=== PATIENT | male | born 1985 | race Caucasian/White ===

== ENCOUNTER 2016-07-21 11:24 | Emergency (ER) | payer OTHER ==
[2016-07-21] MEDS ORDERED: LIDOCAINE 1% 2 ML VIAL ONE (11:57)
[2016-07-21] MEDS ORDERED: BACITRACIN OINT TOP STA (14:02)
[2016-07-21] MEDS ORDERED: BACITRACIN OINT TOP ONE (14:06)
== END 2016-07-21 14:26 | disposition home or self-care (01) ==
DX: S61.212A Laceration without foreign body of right middle finger without damage to nail, initial encounter (principal); W20.8XXA Other cause of strike by thrown, projected or falling object, initial encounter; Y92.89 Other specified places as the place of occurrence of the external cause; Y99.0 Civilian activity done for income or pay
CPT/HCPCS: 12001; 73140; 99283; A9270

== ENCOUNTER 2016-09-06 15:36 | Outpatient (CLI) | payer OTHER ==
--- NOTE | 2016-09-06 22:06 | MRI Report ---
EXAM: RIGHT HIP MRI WITHOUT CONTRAST EXAM DATE: 09/06/2016 04:20 PM. CLINICAL HISTORY: Slipped, fell, legs split, right groin pain with abduction, right hip pain, fell on e month ago. COMPARISON: None. TECHNIQUE: Multiplanar, multisequence T1-weighted and fluid-sensitive, small vjojs-vo-saeg sequences of the hip and large tqhay-vv-qemy sequences of the pelvis without contrast. Other: None. FINDINGS: Bones and articular surfaces: There is moderate cartilage thinning and some fissuring at the superior aspect of the right hip joint. There is prominent focal subchondral marrow edema at the anterosuperi or aspect of the right hip acetabulum. Mild cartilage thinning partially visualized in the left hip j oint. Marrow signal within the femoral heads appears normal. Small amount of degenerative subcortical marrow edema associated with the anteroinferior margin of the bilateral sacroiliac joints, right gre ater than left. No additional marrow signal abnormality. No evidence of acute fracture. No evidence o f femoral head AVN. Musculotendinous structures: No evidence of significant muscle tear, tendinosis or bursitis. No muscl e edema, atrophy or fatty replacement. Miscellaneous: There may be a trace amount of free fluid in the right pelvis. Unremarkable urinary bl adder. No pathologically enlarged lymph nodes. IMPRESSION: 1. Prominent focal marrow edema at the anterosuperior right hip acetabulum. There is moderate cartila ge thinning within the hip joint and this could represent degenerative subchondral edema. Alternative ly, this could represent bone contusion superimposed upon mild osteoarthritis. 2. Minimal degenerative change at the right greater than left sacroiliac joint. [facility] SECTION Referring Provider Line: [phone] SITE ID: [id number]
== END 2016-09-06 15:37 | disposition home or self-care (01) ==
LOC: DI 15:36
PROVIDERS: ATTEND Family Medicine
DX: R10.31 Right lower quadrant pain (principal); M47.898 Other spondylosis, sacral and sacrococcygeal region

== ENCOUNTER 2017-05-01 13:03 | Outpatient (CLI) | payer OTHER ==
[~2017-05-01 13:03] MED LIST: GADOPENTETATE DIMEGLUMINE 5 ML VIAL IVP ONE; IOTHALAMATE MEGLUMINE 50 ML VIAL ONE
[2017-05-01] MEDS ORDERED: BUFFERED LIDOCAINE 10 ML SYRINGE IU ONE (14:10)
[2017-05-01] MEDS ORDERED: IOTHALAMATE MEGLUMINE 50 ML VIAL IVP ONE (14:10)
[2017-05-01] MEDS ORDERED: GADOPENTETATE DIMEGLUMINE 5 ML VIAL IVP ONE (14:10)
--- NOTE | 2017-05-01 15:02 | XRAY Report ---
DATE OF SERVICE: 05/01/2017 FLUOROSCOPICALLY GUIDED RIGHT HIP INJECTION FOR MR ARTHROGRAM: 05/01/2017 CLINICAL INDICATION: Persistent pain. FINDINGS: Following obtaining informed consent, the patient's right hip was prepped and draped in the usual sterile fashion. The skin and soft tissues were anesthetized with lidocaine. A spinal needle was inserted into the patient's right hip joint, and following confirmation of needle positioning, a combination of Iodinated contrast, dilute gadolinium, and lidocaine was injected intraarticularly. The patient tolerated the procedure well. No immediate complications. Spot image reveals no evidence of contrast extravasation. IMPRESSION: SUCCESSFUL RIGHT HIP INJECTION FOR MR ARTHROGRAM. FLUOROSCOPY TIME: 27 SECONDS; 1 SPOT IMAGE OBTAINED. TD: 05/01/2017 14:59
--- NOTE | 2017-05-01 16:04 | MRI Report ---
EXAM: RIGHT HIP MRI ARTHROGRAM WITH CONTRAST EXAM DATE: 05/01/2017 02:35 PM. CLINICAL HISTORY: Right hip muscle or tendon strain. Previous injury. COMPARISON: Right hip MRI from 09/06/2016. TECHNIQUE: Multiplanar, multisequence T1-weighted and fluid-sensitive, small ekjcx-kf-iaxs sequences of the hip and large vxprw-jh-twdh sequences of the pelvis after an arthrographic injection of dilute gadolinium, dictated under a separate exam. Other: None. FINDINGS: Bones: Small osseous ridge/bump at the anterior aspect of the right femoral neck. No acute fracture o r bone lesions. The previously seen marrow edema at the anterior superior aspect of the right acetabu lum has resolved. There is a tiny 2 mm subcortical cyst at the anterior superior aspect of the right acetabulum. Tiny subcortical cyst at the anterolateral aspect of the left femoral head-neck junction. Slightly diminished left femoral head-neck offset. Right Hip: No acetabular retroversion. Slightly diminished right femoral head-neck offset. No loose b odies. The articular cartilage is intact. The labrum is intact. The ligamentum teres is intact. Other Joints: The visualized lumbar spine, sacroiliac joints, symphysis pubis, and contralateral hip are unremarkable. Musculature: No edema or fatty atrophy. The gluteus medius and minimus tendons are normal. The visual ized hamstring tendons are normal. The ischiofemoral space is normal. Pelvic Cavity: The visualized viscera are unremarkable. No lymphadenopathy. No free fluid in the pelv is. Other: The visualized sciatic nerves are unremarkable. No bursitis. The subcutaneous tissues are unre markable. IMPRESSION: 1. Slightly diminished bilateral femoral head-neck offset which may be a cause for cam-type femoral a cetabular impingement. Small osseous ridge/bump at the anterior aspect of the right femoral neck. 2. No evidence of right acetabular labral tear. 3. No evidence of tendon or muscle injury. [facility] SECTION Referring Provider Line: [phone] SITE ID: [id number]
== END 2017-05-01 13:04 | disposition home or self-care (01) ==
LOC: DI 13:03
PROVIDERS: ATTEND Family Medicine
DX: S76.011D Strain of muscle, fascia and tendon of right hip, subsequent encounter (principal)
CPT/HCPCS: 27093; 73722; 77002; Q9961; 20610

== ENCOUNTER 2018-04-24 12:59 | Emergency (ER) | payer SELFPAY ==
[2018-04-24] MEDS ORDERED: DEXAMETHASONE 10 MG/ML VIAL PO STA (14:52)
--- NOTE | 2018-04-24 14:55 | ED Physician Documentation ---
PD HPI URI - Stated complaint Stated Complaint: BODY ACHE/FEVER - Chief complaint Chief Complaint: Fever - History obtained from History obtained from: Patient - History of Present Illness Timing - onset: How many days ago (3) Timing duration: Days (3) Timing details: Gradual onset, Still present Associated symptoms: Fever, Chills, Sweats, Nasal congestion, Rhinorrhea, Sore throat, Productive cough Contributing factors: Sick contact Improves by: Rest, Medication Worsened by: Activity Similar symptoms before: Diagnosis (OM) Recently seen: Not recently seen - Additional information Additional information: 32-year-old male with remote history of recurrent otitis status post tube placement as a child has now developed cough and congestion muscle aches and p ains and production of yellow-green phlegm. He has had a bit of a sore throat associated with this and his shoulder hurts. Review of Systems Constitutional: reports: Fever, Chills, Myalgias, Fatigue Eyes: denies: Decreased vision Ears: denies: Ear pain Nose: reports: Rhinorrhea / runny nose, Congestion Throat: reports: Sore throat Cardiac: denies: Chest pain / pressure, Palpitations Respiratory: reports: Cough. denies: Dyspnea GI: denies: Vomiting PD PAST MEDICAL HISTORY - Past Medical History Cardiovascular: None Endocrine/Autoimmune: None - Past Surgical History HEENT: Tonsil/Adenoidectomy - Present Medications Home Medications: Ambulatory Orders Medication Instructions Recorded Confirmed Azithromycin [Zithromax] 250 mg PO DAILY #6 tablet 04/24/18 Ibuprofen 04/24/18 - Allergies Allergies/Adverse Reactions: Allergies Allergy/AdvReac Type Severity Reaction Status Date / Time lactose AdvReac Cramps Verified 04/24/18 13:30 - Social History Does the pt smoke?: No Smoking Status: Never smoker Does the pt drink ETOH?: No Does the pt have substance abuse?: No - Immunizations Immunizations are current?: Yes Immunizations: TDAP current <10years - POLST Patient has POLST: No PD ED PE NORMAL - Vitals Vital signs reviewed: Yes (tachy nad hypertensive) - General General: Alert and oriented X 3, No acute distress, Well developed/nourished - HEENT HEENT: Atraumatic, PERRL, EOMI, Other (both TM's are inflamed with distortion of the landmarks. There is tympanosclerosis present on the left side inferior from prior PE tubes. ) - Neck Neck: Supple, no meningeal sign, No bony TTP - Cardiac Cardiac: RRR, No murmur - Respiratory Respiratory: No respiratory distress, Clear bilaterally - Abdomen Abdomen: Soft, Non tender - Back Back: No CVA TTP, No spinal TTP - Derm Derm: Normal color, Warm and dry, No rash - Extremities Extremities: No deformity, No edema - Neuro Neuro: Alert and oriented X 3, ob/gyn physician 2-12 intact, No motor deficit, No sensory deficit, Normal speech Eye Opening: Spontaneous Motor: Obeys Commands Verbal: Oriented GCS Score: 15 - Psych Psych: Normal mood, Normal affect Results - Vitals Vitals: Vital Signs - 24 hr 04/24/18 13:27 Temperature 37.4 C Heart Rate 102 H Respiratory 16 Rate Blood Pressure 157/80 H O2 Saturation 96 Oxygen O2 Source Room air - Labs Labs: Laboratory Tests 04/24/18 04/24/18 13:34 14:00 Influenza A (Rapid) Negative Influenza B (Rapid) Negative Group A Strep Rapid Negative PD MEDICAL DECISION MAKING - ED course Complexity details: considered differential, d/w patient ED course: 32-year-old male with a bilateral otitis negative rapid strep and influenza, is given dexamethasone and we will place him on some azithromycin as he feels like he might be allergic to amoxicillin. Departure - Departure Disposition: 01 Home, Self Care Clinical Impression: Otitis media Qualifiers: Otitis media type: suppurative Chronicity: acute Laterality: bilateral Recurrence: not specified as recurrent Spontaneous tympanic membrane rupture: without spontaneous rupture Qualified Code(s): H66.003 - Acute suppurative otitis media without spontaneous rupture of ear drum, bilateral Condition: Stable Instructions: ED Otitis Media Acute Adult Follow-Up: Carter Trevizo MD [Primary Care Provider] - Prescriptions: Azithromycin [Zithromax] 250 mg PO DAILY #6 tablet Forms: Activity restrictions
[2018-04-24 15:07] VITALS: BP 116/65
== END 2018-04-24 15:06 | disposition home or self-care (01) ==
LOC: ED 12:59
DX: H66.003 Acute suppurative otitis media without spontaneous rupture of ear drum, bilateral (principal); H74.02 Tympanosclerosis, left ear
CPT/HCPCS: 87070; 87275; 87276; 87430; 99282; 99283